=== PATIENT | male | born 1970 | race Caucasian/White ===

== ENCOUNTER 2018-01-21 19:25 | Emergency (ER) | payer BC, OTHER ==
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
--- NOTE | 2018-01-22 07:31 | CR ---
Left ankle: Four views of left ankle were obtained. Comparison: No previous study. Ankle mortise is symmetric. No fracture, dislocation or other bony abnormality is seen. Impression: 1. No abnormality is identified on left ankle exam. Diagnostic code #1
== END 2018-01-21 20:22 | disposition home or self-care (01) ==
LOC: JD.ED 19:25
DX: S93.402A Sprain of unspecified ligament of left ankle, initial encounter (principal); I10 Essential (primary) hypertension; X50.9XXA Other and unspecified overexertion or strenuous movements or postures, initial encounter
CPT/HCPCS: 73610-26-LT; 73610-LT; 99283

== ENCOUNTER 2022-07-10 17:31 | Emergency (ER) | payer BC ==
[2022-07-10] MEDS ORDERED: Ondansetron 4 MG/2 ML SDV IVPUSH ONE (18:42)
[2022-07-10] MEDS ORDERED: Sodium Chloride 0.9% 1,000 ML IV ONE (18:42)
[2022-07-10] MEDS ORDERED: Amoxicillin/Clavulanate K 875-125 MG Tab PO ONE (20:53)
[2022-07-10] MEDS ORDERED: Meclizine 25 MG Tab PO ONE (20:54)
== END 2022-07-10 21:06 | disposition home or self-care (01) ==
LOC: JD.ED 17:31
DX: R42 Dizziness and giddiness (principal); H65.193 Other acute nonsuppurative otitis media, bilateral; E78.00 Pure hypercholesterolemia, unspecified; I10 Essential (primary) hypertension
CPT/HCPCS: 36415; 71045; 80053; 81003; 83735; 85025; 93005; 96361; 96374; 99284; A9270; J2405; J7030